=== PATIENT | female | born 1975 | race Caucasian/White ===

== ENCOUNTER 2017-03-31 09:01 | Emergency (ER) | payer BC ==
[2017-03-31 09:12] VITALS: BP 112/72
--- NOTE | 2017-03-31 09:35 | UC ---
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 SINCE 6 DAYS AGO, BEGAN DEVELOPING SPREADING ITHCY WEEPING RASH ON THIGHS HANDS AND ARMS. - History of Current Complaint Chief Complaint: UCSkin Time Seen by Provider: 03/31/17 09:16 Stated Complaint: RASH Hx Obtained From: Patient Hx Last Menstrual Period: mirena Onset/Duration: Gradual Onset, Lasting Days, Still Present, Worse Since - PROGRESSIVE Skin Exposure Onset/Duration: Weeks Ago Onset Severity: Mild Current Severity: Moderate Location: Generalized Character: Redness, Raised Aggravating: Touch Alleviating: Nothing Associated Signs & Symptoms: Positive: Rash, Drainage, Tenderness. Negative: Nausea, Vomiting, Fever, Chills, Cough, Wheezing, Chest Pain, Hoarseness, Throat Tightening, Red Streaks, Joint Swelling Related History: Possible Reaction to: Environmental Exposure - Allergy/Home Medications Allergies/Adverse Reactions: Allergies Allergy/AdvReac Type Severity Reaction Status Date / Time No Known Allergies Allergy Verified 03/31/17 09:07 Home Medications: Home Medications Levonorgestrel (Iud) [Mirena IUD] 03/31/17 [History] Review of Systems Constitutional: Negative Skin: Rash Eyes: Negative ENT: Negative Respiratory: Negative Cardiovascular: Negative Gastrointestinal: Negative Genitourinary: Negative Motor: Negative Neurovascular: Negative Musculoskeletal: Negative Neurological: Negative Psychological: Negative All Other Systems Reviewed And Are Negative: Yes PMH/Surg Hx/FS Hx/Imm Hx Previously Healthy: Yes - Surgical History Surgical History: Yes Surgery Procedure, Year, and Place: C-SECTIONS (2013, 2009) - Family History Known Family History: Positive: None - Social History Occupation: Employed Full-time Lives: With Family Alcohol Use: None Substance Use Type: None Smoking Status (MU): Never Smoked Tobacco - Immunization History Most Recent Influenza Vaccination: 06/17/13 Most Recent Tetanus Shot: WITHIN LAST 2 YRS Most Recent Pneumonia Vaccination: never Physical Exam Triage Information Reviewed: Yes Appearance: Well-Appearing, No Pain Distress, Well-Nourished Vital Signs: Initial Vital Signs Temp 97.8 F 03/31/17 09:08 Pulse 57 03/31/17 09:08 Resp 16 03/31/17 09:08 BP 112/72 03/31/17 09:08 Pulse Ox 100 03/31/17 09:08 Vital Signs Reviewed: Yes Eye Exam: Normal ENT Exam: Normal ENT: Positive: Normal ENT inspection, Hearing grossly normal, TMs normal Dental Exam: Normal Neck exam: Normal Neck: Positive: Supple, Nontender, No Lymphadenopathy Respiratory Exam: Normal Respiratory: Positive: Chest non-tender, Lungs clear, Normal breath sounds, No respiratory distress, No accessory muscle use Cardiovascular Exam: Normal Cardiovascular: Positive: RRR, No Murmur Abdominal Exam: Normal Musculoskeletal Exam: Normal Neurological Exam: Normal Psychological Exam: Normal Skin: Positive: rashes Course/Dx - Differential Diagnoses - Skin Complaint Differential Diagnoses: Allergic Reaction, Cellulitis, Drug Rash, Eczema, Impetigo, Poison Jasper, Poison [place], Tinea, Varicella Zoster, Viral Exanthem - Diagnoses Provider Diagnoses: POISON JASPER/OAK Discharge - Discharge Plan Condition: Stable Disposition: HOME Prescriptions: predniSONE TAB* [Deltasone TAB*] 10 mg PO DAILY #28 tab Patient Education Materials: Poison [place]asper (ED) Referrals: Corazon Garcia MD [Primary Care Provider] -
== END 2017-03-31 09:30 | disposition home or self-care (01) ==
LOC: UCEAST 09:01
DX: L23.7 Allergic contact dermatitis due to plants, except food (principal)
CPT/HCPCS: 99212; G0463

== ENCOUNTER 2017-05-22 10:06 | Emergency (ER) | payer BC ==
[2017-05-22 11:28] VITALS: BP 106/66
--- NOTE | 2017-05-22 12:07 | UC ---
Respiratory Complaint HPI - HPI Summary HPI Summary: This is a 41 yo female who presents with c/o cough x 12d. She denies fever. Some mild SOB. She states the cough has become worse in the last couple of days. She has mild intermittent asthma, she has not used her albuterol inhaler with this illness. - History of Current Complaint Chief Complaint: UCRespiratory Stated Complaint: COUGH Hx Last Menstrual Period: mirena - Allergies/Home Medications Allergies/Adverse Reactions: Allergies Allergy/AdvReac Type Severity Reaction Status Date / Time No Known Allergies Allergy Verified 05/22/17 11:23 Home Medications: Home Medications Albuterol HFA INHALER* [Ventolin HFA Inhaler*] 2 puff INH Q4H PRN 05/22/17 [ History Confirmed 05/22/17] Levonorgestrel (IUD) (NF) [Mirena (NF)] 05/22/17 [History] Unknown Cough Syrup 05/22/17 [History] PMH/Surg Hx/FS Hx/Imm Hx Respiratory History: Asthma - Surgical History Surgical History: Yes Surgery Procedure, Year, and Place: C-SECTIONS (2013, 2009) - Family History Known Family History: Positive: None - Social History Alcohol Use: None Substance Use Type: None Smoking Status (MU): Never Smoked Tobacco - Immunization History Most Recent Influenza Vaccination: 06/17/13 Most Recent Tetanus Shot: WITHIN LAST 2 YRS Most Recent Pneumonia Vaccination: never Review of Systems Constitutional: Negative Skin: Negative Eyes: Negative ENT: Negative Respiratory: Shortness Of Breath, Cough Cardiovascular: Negative Gastrointestinal: Negative Genitourinary: Negative Motor: Negative Neurovascular: Negative Musculoskeletal: Negative Neurological: Negative Psychological: Negative Is Patient Immunocompromised?: No All Other Systems Reviewed And Are Negative: Yes Physical Exam Triage Information Reviewed: Yes Appearance: Well-Appearing Vital Signs: Initial Vital Signs Temp 99.8 F 05/22/17 11:24 Pulse 68 05/22/17 11:24 Resp 16 05/22/17 11:24 BP 106/66 05/22/17 11:24 Pulse Ox 98 05/22/17 11:24 Vital Signs Reviewed: Yes ENT Exam: Normal ENT: Positive: Normal ENT inspection Neck: Positive: Supple, Nontender Respiratory: Positive: Chest non-tender, Rhonchi, Wheezing Cardiovascular: Positive: RRR, No Murmur Abdomen Description: Positive: Nontender, Soft Musculoskeletal: Positive: Strength Intact Neurological: Positive: Alert Psychological Exam: Normal Skin Exam: Normal UC Diagnostic Evaluation - Laboratory O2 Sat by Pulse Oximetry: 98 Respiratory Course/Dx - Course Course Of Treatment: This is a 41 yo female with mild asthma who presents with cough x 12d. Wheeze and rhonchi on exam but no resp distress or hypoxia. Started steroid taper and recommended that she use her albuterol frequently. If cough does not improve she she should be re-evaluated with a CXR - Differential Dx/Diagnosis Differential Diagnosis/HQI/PQRI: Asthma, Bronchitis, Influenza Provider Diagnoses: 1. Asthma exacerbation - likely viral induced Discharge - Discharge Plan Condition: Stable Disposition: HOME Prescriptions: Methylprednisolone [Medrol Dosepak 4 MG*] 4 mg PO .SEE AISLINN INSTRUCTION #1 [email or web address] Patient Education Materials: Bronchospasm (ED) Referrals: Corazon Garcia MD [Primary Care Provider] - If Needed Additional Instructions: Instructions: 1. Please take steroid pack as directed 2. Use albuterol inhaler as needed for cough/shortness of breath 3. If symptoms do not improve within the next week please return for re- evaluation or to your PCP
== END 2017-05-22 12:07 | disposition home or self-care (01) ==
LOC: UCEAST 10:06
DX: J45.901 Unspecified asthma with (acute) exacerbation (principal)
CPT/HCPCS: 99212; G0463

== ENCOUNTER 2018-04-10 06:23 | Day surgery (SDC) | payer BC ==
[~2018-04-10 06:23] MED LIST: Buffered Lidocaine 0.9% SYRIN* 5 ML/SYR SYRINGE INTRADERM ONE; Dexamethasone IV* 4 MG/ML 1 ML (4 MG) IV SLOW PU ONE; Dexamethasone IV* 4 MG/ML 1 ML (4 MG) ONE; Famotidine IV* 10 MG/ML 2 ML (20 mg) IV ONE; Famotidine IV* 10 MG/ML 2 ML (20 mg) ONE
[2018-04-10] MEDS ORDERED: ceFAZolin 2 GM in NS PREMIX(*) 2 GM/100 ML BAG IVPB ONE (06:40)
[2018-04-10] MEDS ORDERED: ROPIVACAINE 5 MG/ML 30 ML BTL (0.5%) ONE (07:17)
[2018-04-10] MEDS ORDERED: Lidocaine 1% INJ* 10 MG/ML 30 ML SDV ONE (07:17)
[2018-04-10] MEDS ORDERED: Dexamethasone IV* 4 MG/ML 1 ML (4 MG) ONE (07:18)
[2018-04-10] MEDS ORDERED: fentaNYL* 50 MCG/ML 2 ML VIAL (100 MCG VIAL) IV PRN (07:20)
[2018-04-10] MEDS ORDERED: oxyCODONE/Acetamin 5/325 MG* TAB PO PRN (07:20)
[2018-04-10] MEDS ORDERED: DiMENhydriNATE IV* 50 MG/ML VIAL IV PUSH PRN (07:20)
[2018-04-10] MEDS ORDERED: Ondansetron INJ* 2 MG/ML VIAL IV PRN (07:20)
[2018-04-10] MEDS ORDERED: Naloxone* 0.4 MG/ML 1 ML VIAL IV PRN (07:20)
[2018-04-10] MEDS ORDERED: fentaNYL* 50 MCG/ML 2 ML VIAL (100 MCG VIAL) ONE (07:22)
[2018-04-10] MEDS ORDERED: Midazolam* 1 MG/ML 5 ML VIAL (5 MG) ONE (07:22)
[2018-04-10] MEDS ORDERED: Propofol* 10 MG/ML 20 ML BTL IV PUSH ONE (07:23)
[2018-04-10] MEDS ORDERED: Ondansetron INJ* 2 MG/ML VIAL ONE (07:23)
[2018-04-10] MEDS ORDERED: Ketorolac INJ* 30 MG/ML 1 ML VIAL ONE (07:23)
[2018-04-10] MEDS ORDERED: Lidocaine 2% PF * 5 ML VIAL ONE (07:23)
[2018-04-10] MEDS ORDERED: DiMENhydriNATE IV* 50 MG/ML VIAL ONE (08:54)
[2018-04-10 09:09] VITALS: BP 97/57
--- NOTE | 2018-04-11 00:03 | OP ---
DATE OF OPERATION: 04/10/18 - [facility] DATE OF : 71 SURGEON: Bolivar Reina DPM. CIRCLE EDGER: None. ANESTHESIA: MAC with local. 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 OPERATIVE PROCEDURE: Excision of neuroma from the 3rd intermetatarsal space in the left left. PATHOLOGY: Excised neuroma from left foot. HEMOSTASIS: Pneumatic ankle tourniquet. ESTIMATED BLOOD LOSS: Less than 5 cc. INDICATIONS: The patient with chronic left forefoot pain and findings and symptoms consistent with intermetatarsal neuroma. It has not responded consistently to multiple prior treatments including steroid infiltration and dehydrated alcohol chemical neurolysis. Patient continues to have pain on a regular basis and difficulty wearing closed shoes and continued pain when walking and limitation in her activity. She opts for surgery this time to improve her function and decrease her pain. DESCRIPTION OF PROCEDURE: The patient was brought to the operating room, placed on the operating table in the supine position. The anesthesia department administered IV sedation and a peripheral nerve block was performed about the left foot with a 1:1 mixture of 1% lidocaine plain and 0.5% ropivacaine plain. The left foot was prepped and draped in the usual fashion. The left foot was then exsanguinated with Esmarch bandage and a pneumatic ankle tourniquet was inflated to 250 mmHg about well-padded left ankle. Attention was directed to the dorsal aspect of the 3rd metatarsal space where a curvilinear incision was made. The incision was deepened through subcutaneous tissues with care being taken to retract neurovascular structures and cauterize superficial bleeders as needed. Dissection was carried into the intermetatarsal space where dorsal with plantar pressure, the neural mass was visible. Dissection was carried distally and proximally following the course of the neuroma freeing it from fibrous tissue and attachments. While gently distracting the neuroma distally, it was transected as far proximal successful and then retracted proximally and dissected at the respective bifurcations at the respective 3rd and 4th digits. The mass was sent off the field as specimen. Proximal stalk was buried into a adjacent dorsal musculature as much as possible. The surgical site was flushed with copious amounts of normal sterile saline. The subcutaneous tissues were then reapproximated with 4-0 Vicryl and skin was closed with 5-0 nylon. 12 mg of dexamethasone phosphate was infiltrated about the surgical site and the incision was dressed with Xeroform gauze and a light compressive dressing was applied with 4x4 gauze, Angela, and light Coban wrap. The pneumatic ankle tourniquet was deflated about the left ankle and prompt hyperemic response was noted about all 5 digits of the patient's left foot. Having appeared to tolerate the procedure and anesthesia well, the patient was transported via cart from the operating room to Recovery in a satisfactory condition with cap refills less than 3 seconds to all digits of the left foot. [id number]/[facility] #: [id number] MTDD
== END 2018-04-10 09:30 | disposition home or self-care (01) ==
LOC: OREAST 06:23
PROVIDERS: ATTEND Podiatrist Foot Surgery
CPT/HCPCS: 81025; 88304; J0690; J1100; J1240; J1885; J2250; J2405; J2704; J2795; J3010

== ENCOUNTER 2018-05-02 14:51 | Emergency (ER) | payer BC ==
[2018-05-02 15:04] VITALS: BP 130/71
--- NOTE | 2018-05-02 15:44 | UC ---
Skin Complaint HPI - HPI Summary HPI Summary: Patient presents to urgent care for evaluation of her wound. Patient states 4 years ago she had a retained suture that caused an open wound infection. Patient states it was a very close slow closure by secondary intention. Patient states she was doing well until last evening. Patient states she tried to do a flip over bar on a plane and with her daughter. Patient states she felt little discomfort at the site of her scar. When she got home she noticed that she had blood at 1 area and had a "small hole ". Patient states it is not bleeding very much today but was concerned and wanted to have it looked at. Patient is not immunocompromised per patient is Medications. Patient has not done anything special to treat her wound today. Patient states typically when she tried to shave it necessary she is a very difficult time because the skin is not smooths and she frequently gets ingrown hairs. Patient's medications reviewed this visit. - History of Current Complaint Chief Complaint: UCAbdominalPain Time Seen by Provider: 05/02/18 15:04 Stated Complaint: WOUND ON STOMACH Hx Obtained From: Patient Hx Last Menstrual Period: 04/27/18 Onset/Duration: Sudden Onset Skin Exposure Onset/Duration: Hours Ago Current Severity: None Pain Intensity: 0 - Allergy/Home Medications Allergies/Adverse Reactions: Allergies Allergy/AdvReac Type Severity Reaction Status Date / Time BANDAIDS Allergy Rash Uncoded 05/02/18 15:05 Review of Systems Constitutional: Negative Skin: Other - open wound at c section scar All Other Systems Reviewed And Are Negative: Yes PMH/Surg Hx/FS Hx/Imm Hx - Additional Past Medical History Additional PMH: Vital Signs Reviewed: Yes A+Ox3, no distress Eyes: Conjunctiva Clear ENT: Hearing grossly normal neck: supple Respiratory: Positive: No respiratory distress, No accessory muscle use Cardiovascular: skin color reflect adequate perfusion Musculoskeletal Exam: ZABALA x 4 without difficulty Neurological: Positive: Alert, ambulatory without difficulty Psychological: Positive: Normal Response To Family Skin: Positive: scar - - Surgical History Surgical History: Yes Surgery Procedure, Year, and Place: C-SECTIONS (2013, 2010). RIGHT FOOT SURGERY FOR NEUROMA- [facility]. Left foot surgery 2018 - Family History Known Family History: Positive: None - Social History Alcohol Use: Weekly Alcohol Amount: 2-3 BEERS PER WEEK Substance Use Type: None Smoking Status (MU): Never Smoked Tobacco Have You Smoked in the Last Year: No - Immunization History Most Recent Influenza Vaccination: 06/17/13 Most Recent Tetanus Shot: WITHIN LAST 2 YRS Most Recent Pneumonia Vaccination: never Physical Exam - Summary Physical Exam Summary: Vital Signs Reviewed: Yes A+Ox3, no distress Eyes: Conjunctiva Clear ENT: Hearing grossly normal neck: supple Respiratory: Positive: No respiratory distress, No accessory muscle use Cardiovascular: skin color reflect adequate perfusion Musculoskeletal Exam: ZABALA x 4 without difficulty Neurological: Positive: Alert, ambulatory without difficulty Psychological: Positive: Normal Response To Family Skin: Positive: At bikini line pt with well healed c section - lower and transverse scar. right lateral 1/2 pt with small, open wound - c/w small drained seroma. no odor, dischare, bleeding. No fluctuance, erythema non tender pt few hair missed with shaving surrounding wound. After consent cleansed wound with chlorexadine used fine point scissors and trimmed 4 strands of hair- covered with antibiotic ointment bandage- nonstick gauze Triage Information Reviewed: Yes Vital Signs: Initial Vital Signs Temp 100.6 F 05/02/18 14:59 Pulse 69 05/02/18 14:59 Resp 143 05/02/18 14:59 BP 130/71 05/02/18 14:59 Pulse Ox 97 05/02/18 14:59 Course/Dx - Course Course Of Treatment: Patient presents with small opening in right lateral aspect of her previously healed scar. Patient states wound is at the site which he previously had a retained suture along prolonged healing. Patient with a small punctate area of open redness. No chest concern for infection. No drainage, odor, discharge. d/w pt wound care. return recautions. pt comfortable and in agreement with plan - Diagnoses Provider Diagnoses: wound Discharge - Sign-Out/Discharge Documenting (check all that apply): Patient Departure All imaging exams completed and their final reports reviewed: No Studies - Discharge Plan Condition: Stable Disposition: HOME Patient Education Materials: Acute Wound Care (ED) Referrals: Corazon Garcia MD [Primary Care Provider] - Additional Instructions: - Gently wash her wound with warm soap and water twice a day. After washing dry completely. Recommended you Pat dry and not rub. After drying wound, cover with a thin layer of antibiotic ointment such as Neosporin and Polysporin. Cover with a Band-Aid. It's important to prevent rubbing underpants or underwear. - At today's exam, your wound does not look infected. Monitor closely for signs of infection. These include redness, red streaking, odor, green discharge , pain, fever, chills. If you have any concerns, it is recommended you be rechecked. He may return here, go emergency department, your primary care doctor. - Okay to take ibuprofen or Tylenol as needed for pain. If you are at home intermittently the wound open exposed to air that is also okay. - Billing Disposition and Condition Condition: STABLE Disposition: Home
== END 2018-05-02 15:40 | disposition home or self-care (01) ==
LOC: UCEAST 14:51
DX: T81.89XD Other complications of procedures, not elsewhere classified, subsequent encounter (principal); Y83.8 Other surgical procedures as the cause of abnormal reaction of the patient, or of later complication, without mention of misadventure at the time of the procedure
CPT/HCPCS: 99212; G0463